=== PATIENT | male | born 1975 | race Caucasian/White ===

== ENCOUNTER 2017-06-07 14:13 | Emergency (ER) | END 2017-06-07 16:46 | disposition home or self-care (01) ==

== ENCOUNTER 2017-08-27 21:47 | Emergency (ER) | END 2017-08-28 01:37 | disposition home or self-care (01) ==

== ENCOUNTER 2018-09-29 07:57 | Emergency (ER) | payer OTHER ==
[~2018-09-29] VITALS: Ht 165.1 cm; Wt 97.0 kg
[~2018-09-29 07:57] MED LIST: BENZ200C68 PO; IBUP-1561 PO; NEOM28OI2 TP; ONDA4TAB14 PO
[2018-09-29 07:58] VITALS: Ht 165.1 cm; Wt 97.0 kg
[2018-09-29] MEDS ORDERED: SOD CHLORIDE 0.9% 1,000 ML IV STA (08:26)
[2018-09-29] MEDS ORDERED: DIPHENOXYLATE/ATROPINE TAB PO ONE (08:30)
[2018-09-29] MEDS ORDERED: DIPH1TAB PO (10:11)
--- NOTE | 2018-09-29 10:39 | ERD ---
ER Documentation Chief Complaint Chief Complaint PAIN @ THE MID ABDOMINAL RIGHT TO THE RIGHT AND DIARRHEA X 2 DAYS HPI Is a very pleasant 42-year-old male with no past medical history that presents to the emergency department complaining of multiple episodes of loose watery stools. The patient indicates that he has been experiencing diarrhea roughly every 30 minutes for the past 48 hours. Contrary to the triage note the patient denies any abdominal pain. The patient said no fevers or shaking or chills. He denies any recent travel or prolonged immobilization. He denies any nausea or vomiting. He denies any chest pain. He denies any recent hospitalizations and has not taken any antibiotics. He has had no sick contacts. ROS All systems reviewed and are negative except as per history of present illness. Medications Home Meds Active Scripts Diphenoxylate HCl/Atropine (Lomotil 2.5-0.025 mg Tablet) 1 Each Tablet, 1 TAB PO QID PRN for DIARRHEA, #10 TAB Prov:LAUREN KIMBLE MD 09/29/18 Ibuprofen* (Motrin*) 400 Mg Tab, 400 MG PO Q6, #30 TAB Prov:AALIYAH,PORSCHE 08/28/17 Neomycin Rainey/Bacitrac Zn/Poly (Triple Antibiotic Ointment) 28 Gm Oint...g., 28 GM TP BID for 3 Days Prov:AALIYAH,PORSCHE 08/28/17 Ondansetron (Ondansetron Odt) 4 Mg Tab.rapdis, 4 MG PO Q6H PRN for NAUSEA AND/OR VOMITING, #10 TAB Prov:TRISTIN BENNETT PA-C 06/07/17 Benzonatate* (Benzonatate*) 200 Mg Capsule, 200 MG PO TID PRN for COUGH, #15 CAP Prov:TRISTIN BENNETT PA-C 06/07/17 PMhx/Soc History of Surgery: No Anesthesia Reaction: No Hx Neurological Disorder: No Hx Respiratory Disorders: Yes (asthma) Hx Cardiac Disorders: No Hx Psychiatric Problems: No Hx Miscellaneous Medical Probl: No Hx Alcohol Use: No Hx Substance Use: No Hx Tobacco Use: No Smoking Status: Never smoker Physical Exam Vitals Vital Signs Date Temp Pulse Resp B/P (MAP) Pulse Ox O2 O2 Flow FiO2 Time Delivery Rate 09/29/18 98.1 107 18 120/62 96 07:58 (81) Physical Exam Constitutional:Well-developed. Well-nourished. HEENT:Normocephalic. Atraumatic.Pupils were equal round reactive to light. Moist mucous membranes.No tonsillar exudates. Neck: No nuchal rigidity. No lymphadenopathy. No posterior cervical spine tenderness or step-offs. Respiratory: Not using accessory muscles of respiration.Lungs were clear to auscultation bilaterally. No rhonchi. No rales. No wheezing. Cardiovascular: Regular rate regular rhythm.No murmurs. No rubs were appreciated.S1, S2 normal. Distal pulses are palpable 2+ bilaterally. GI: Abdomen was soft. Nontender. Non Distended. No pulsatile abdominal masses or bruits. No rebound. No guarding. Bowel sounds were present and normal. Result Diagram: 09/29/1846 09/29/1846 Results 24 hrs Laboratory Tests Test 09/29/18 08:46 White Blood Count 4.8 10^3/ul Red Blood Count 5.43 10^6/ul Hemoglobin 16.0 g/dl Hematocrit 46.3 % Mean Corpuscular Volume 85.3 fl Mean Corpuscular Hemoglobin 29.5 pg Mean Corpuscular Hemoglobin Concent 34.6 g/dl Red Cell Distribution Width 12.4 % Platelet Count 253 10^3/UL Mean Platelet Volume 10.0 fl Immature Granulocytes % 0.200 % Neutrophils % 55.4 % Lymphocytes % 26.5 % Monocytes % 15.0 % Eosinophils % 2.3 % Basophils % 0.6 % Nucleated Red Blood Cells % 0.0 /100WBC Immature Granulocytes # 0.010 10^3/ul Neutrophils # 2.7 10^3/ul Lymphocytes # 1.3 10^3/ul Monocytes # 0.7 10^3/ul Eosinophils # 0.1 10^3/ul Basophils # 0.0 10^3/ul Nucleated Red Blood Cells # 0.0 10^3/ul Sodium Level 142 mmol/L Potassium Level 3.7 mmol/L Chloride Level 108 mmol/L Carbon Dioxide Level 22 mmol/L Anion Gap 12 Blood Urea Nitrogen 10 mg/dl Creatinine 0.83 mg/dl Est Glomerular Filtrat Rate mL/min > 60 mL/min Glucose Level 109 mg/dl Calcium Level 8.7 mg/dl Total Bilirubin 0.6 mg/dl Direct Bilirubin 0.00 mg/dl Indirect Bilirubin 0.6 mg/dl Aspartate Amino Transf (AST/SGOT) 52 IU/L Alanine Aminotransferase (ALT/SGPT) 56 IU/L Alkaline Phosphatase 86 IU/L Total Protein 8.3 g/dl Albumin 4.7 g/dl Globulin 3.60 g/dl Albumin/Globulin Ratio 1.30 Current Medications Medications Dose Sig/Jesus Start Time Status Last (Trade) Ordered Route PRN Stop Time Admin Dose Reason Admin Sodium 1,000 ml @ Q1H STAT 09/29/18 DC 09/29/18 Chloride 1,000 mls/hr IV 08:26 08:55 09/29/18 09:25 1 tab ONCE ONCE 09/29/18 DC 09/29/18 Diphenoxylate PO 08:30 08:55 HCl/ 09/29/18 08:32 Atropine (Lomotil) Procedures/MDM This is a very pleasant 42-year-old male that presented to the emergency department diarrhea. Patient had no risk factors for C. difficile. I obtained ancillary laboratory work and had no severe left leg abnormalities. No leukocytosis. I did feel his symptoms are likely result of a viral etiology. He was given IV fluids. He was also given Bentyl and Lomotil. He felt comfortable being discharged home. The patient was discharged home in fair condition. They were instructed to return to the emergency department at any time if there was any worsening of their condition. The patient stated they would follow up with their PCP in the next 24-48 hours to initiate a suitable medication regimen under the care of their PCP as well as to allow their PCP to monitor any drug reactions. The p atient was discharged home with prescriptions after they gave informed consent to the new medication. They were also fully informed by myself on the adverse effects and adverse drug interactions in order to provide adequate safeguards to prevent possible adverse reactions to medications. Departure Diagnosis: Primary Impression: Diarrhea Diarrhea type: unspecified type Qualified Codes: R19.7 - Diarrhea, unspecified Condition: Fair Patient Instructions: Diarrhea, Unk Cause (Adult) Report LAUREN Sanchez MD September 29, 2018 10:39
[2018-09-29 11:15] VITALS: BP 106/78; PULSE 78; RESP 18
== END 2018-09-29 11:22 | disposition home or self-care (01) ==
LOC: E/R 07:57
DX: R19.7 Diarrhea, unspecified (principal); J45.909 Unspecified asthma, uncomplicated
CPT/HCPCS: 80053; 85025; J7030; Z7502; Z7610